=== PATIENT | female | born 1945 | race Hispanic/Latino ===

== ENCOUNTER 2017-05-01 08:57 | Outpatient (CLI) | payer MEDICARE, OTHER ==
--- NOTE | 2017-05-01 15:35 | Mammography Report ---
BILATERAL DIGITAL SCREENING MAMMOGRAM with CAD : 05/01/17 08:57:00 CLINICAL: Routine screening. COMPARISON:04/20/16 FINDINGS: The breasts are heterogeneously dense, which may obscure small masses. No mass, architectural distortion or suspicious calcifications. IMPRESSION: No mammographic evidence of malignancy. BI-RADS CATEGORY: 2 -- Benign RECOMMENDATION: Routine mammographic screening in one year. COMMENT: Patient follow-up letters are generated by our [employer] application.
== END 2017-05-01 08:58 | disposition home or self-care (01) ==
LOC: SPVWC 08:57
PROVIDERS: ATTEND Obstetrics & Gynecology
DX: Z12.31 Encounter for screening mammogram for malignant neoplasm of breast (principal)
CPT/HCPCS: 77067; G0202

== ENCOUNTER 2018-05-21 09:56 | Outpatient (CLI) | payer MEDICARE, OTHER ==
--- NOTE | 2018-05-22 10:11 | Mammography Report ---
BILATERAL DIGITAL SCREENING MAMMOGRAM with CAD: 05/21/18 09:56:00 CLINICAL: Routine screening. COMPARISON:05/01/17 and mammograms going back to 11/13/11 FINDINGS: The breasts are heterogeneously dense, which may obscure small masses. A right upper asymmetry on MLO view requires additional imaging.No architectural distortion or suspicious calcifications.The left breast is negative. Scattered bilateral benign calcifications. IMPRESSION: Right asymmetry requiring further workup. BI-RADS CATEGORY: 0 -- Additional Imaging Evaluation Required RECOMMENDATION: Recall for right mediolateral, exaggerated CC and right MLO spot compression views and right breast ultrasound if needed. ACR BI-RADS MAMMOGRAPHIC CODES: 0 = Needs additional imaging evaluation; 1 = Negative; 2 = Benign; 3 = Probably benign; 4 = Suspicious; 5 = Malignant; 6 = Known biopsy-proven malignancy COMMENT: 1. Dense breast tissue, i.e., adenosis, fibrocystic changes, etc., may obscure an underlying neoplasm. 2. Approximately 10% of cancers are not detected with mammography. 3. A negative mammography report should not delay biopsy if a clinically suspicious mass is present. COMMENT: Patient follow-up letters are generated via our [employer] application.
== END 2018-05-21 09:57 | disposition home or self-care (01) ==
LOC: SPVWC 09:56
PROVIDERS: ATTEND Obstetrics & Gynecology
DX: Z12.31 Encounter for screening mammogram for malignant neoplasm of breast (principal)
CPT/HCPCS: 77067

== ENCOUNTER 2018-06-06 14:05 | Outpatient (CLI) | payer MEDICARE, OTHER ==
--- NOTE | 2018-06-06 15:25 | Ultrasound Report ---
RIGHT DIGITAL DIAGNOSTIC MAMMOGRAM : 06/06/18 14:05:00 CLINICAL: Recalled for asymmetry. COMPARISON:05/21/18 screening FINDINGS: ML, exaggerate CC and spot compression and spot magnification MLO views were performed. An asymmetry persists on the MLO views but is not identified on other views. Ultrasound of the upper right breast was performed and demonstrated normal fibroglandular and fatty structures. No mass, cyst or shadowing. IMPRESSION: A probably benign mammographic asymmetry identified only on MLO views with a negative ultrasound. BI-RADS CATEGORY: 3 - - Probably Benign RECOMMENDATION: Six month followup right mammogram and ultrasound needed. ACR BI-RADS MAMMOGRAPHIC CODES: 0 = Needs additional imaging evaluation; 1 = Negative; 2 = Benign; 3 = Probably benign; 4 = Suspicious; 5 = Malignant; 6 = Known biopsy-proven malignancy COMMENT: 1. Dense breast tissue, i.e., adenosis, fibrocystic changes, etc., may obscure an underlying neoplasm. 2. Approximately 10% of cancers are not detected with mammography. 3. A negative mammography report should not delay biopsy if a clinically suspicious mass is present. COMMENT: Patient follow-up letters are generated via our [employer] application.
== END 2018-06-06 14:06 | disposition home or self-care (01) ==
LOC: SPVWC 14:05
PROVIDERS: ATTEND Obstetrics & Gynecology
DX: N64.89 Other specified disorders of breast (principal)

== ENCOUNTER 2018-11-04 13:53 | Outpatient (CLI) | payer MEDICARE ==
--- NOTE | 2018-11-04 15:06 | Mammography Report ---
RIGHT DIGITAL DIAGNOSTIC MAMMOGRAM with CAD: 11/04/18 13:53:00 CLINICAL: Follow-up asymmetry. COMPARISON:06/06/18 FINDINGS: Routine views plus exaggerated CC and spot compression MLO views were performed. The breast is heterogeneously dense with a stable pattern. The previously described upper asymmetry on MLO view is smaller compared to previous exams. No mass, architectural distortion or suspicious calcifications. IMPRESSION: No mammographic evidence of malignancy. BI-RADS CATEGORY: 2 -- Benign RECOMMENDATION: Return to routine mammographic screening. ACR BI-RADS MAMMOGRAPHIC CODES: 0 = Needs additional imaging evaluation; 1 = Negative; 2 = Benign; 3 = Probably benign; 4 = Suspicious; 5 = Malignant; 6 = Known biopsy-proven malignancy COMMENT: 1. Dense breast tissue, i.e., adenosis, fibrocystic changes, etc., may obscure an underlying neoplasm. 2. Approximately 10% of cancers are not detected with mammography. 3. A negative mammography report should not delay biopsy if a clinically suspicious mass is present. COMMENT: Patient follow-up letters are generated by our [employer] application.
== END 2018-11-04 13:54 | disposition home or self-care (01) ==
LOC: SPVWC 13:53
PROVIDERS: ATTEND Obstetrics & Gynecology
DX: N64.89 Other specified disorders of breast (principal)

== ENCOUNTER 2019-07-29 13:12 | Outpatient (CLI) | payer MEDICARE ==
--- NOTE | 2019-07-29 13:54 | Mammography Report ---
DIGITAL SCREENING MAMMOGRAM WITH CAD, 07/29/2019 INDICATION: Routine screening mammography. TECHNIQUE: Digital bilateral 2D mammography was obtained in the craniocaudal and mediolateral obliq ue projections. This examination was interpreted with the benefit of Computer-Aided Detection analysi s. COMPARISON: 11/04/2018 and 05/21/2018 FINDINGS: Breast Density: The breasts are heterogeneously dense, which may obscure small masses. There is no evidence of dominant mass, suspicious calcifications or architectural distortion in eithe r breast. IMPRESSION: No mammographic evidence of malignancy. Follow up recommendation: Routine yearly BI-RADS Category 2: Benign. A "normal" or negative report should not discourage follow up or biopsy of a clinically significant f inding. A written summary of these findings will be mailed to the patient. The patient will be entered into a mammography reporting system which will generate a reminder letter for the patient's next appointmen t at the appropriate interval. The [employer] recommends yearly mammograms starting at age 40 and continuing as l luis felipe as a woman is in good health. Breast MRI is recommended for women with an approximate 20-25% or greater lifetime risk of breast cancer, including women with a strong family history of breast or ova flip cancer or who have been treated for Hodgkin's disease. Signer Name: Gabriel Duffy MD Signed: 07/29/2019 1:49 PM Workstation Name: [id number]
== END 2019-07-29 13:13 | disposition home or self-care (01) ==
LOC: SPVWC 13:12
PROVIDERS: ATTEND Obstetrics & Gynecology
DX: Z12.31 Encounter for screening mammogram for malignant neoplasm of breast (principal)
CPT/HCPCS: 77067

== ENCOUNTER 2020-07-30 08:41 | Outpatient (CLI) | payer MEDICARE ==
--- NOTE | 2020-07-30 10:09 | Mammography Report ---
DIGITAL SCREENING MAMMOGRAM WITH CAD, 07/30/2020 CLINICAL INFORMATION / INDICATION: Routine screening mammography. SCREENING MAMMO TECHNIQUE: Digital bilateral 2D mammography was obtained in the craniocaudal and mediolateral obliqu e projections. This examination was interpreted with the benefit of Computer-Aided Detection analysis . COMPARISON: 05/21/2018 and 07/29/2019 FINDINGS: Breast Density: The breasts are heterogeneously dense, which may obscure small masses. No dominant mass, suspicious calcifications, or architectural distortion in either breast. There are stable scattered bilateral calcifications. IMPRESSION: No mammographic evidence of malignancy. Follow up recommendation: Routine yearly BI-RADS Category 2: Benign. A "normal" or negative report should not discourage follow up or biopsy of a clinically significant f inding. A written summary of these findings will be mailed to the patient. The patient will be entered into a mammography reporting system which will generate a reminder letter for the patient's next appointmen t at the appropriate interval. The [employer] recommends yearly mammograms starting at age 40 and continuing as l luis felipe as a woman is in good health. Breast MRI is recommended for women with an approximate 20-25% or greater lifetime risk of breast cancer, including women with a strong family history of breast or ova flip cancer or who have been treated for Hodgkin's disease. Signer Name: Andres eRyna MD Signed: 07/30/2020 10:05 AM Workstation Name: [id number]
== END 2020-07-30 08:42 | disposition home or self-care (01) ==
LOC: SPVWC 08:41
PROVIDERS: ATTEND Obstetrics & Gynecology
DX: Z12.31 Encounter for screening mammogram for malignant neoplasm of breast (principal); N64.89 Other specified disorders of breast
CPT/HCPCS: 77067

== ENCOUNTER 2021-08-01 09:29 | Outpatient (CLI) | payer MEDICARE ==
--- NOTE | 2021-08-01 15:17 | Mammography Report ---
DIGITAL SCREENING MAMMOGRAM WITH CAD, 08/01/2021 CLINICAL INFORMATION / INDICATION: Routine screening mammography. SCREENING MAMMO TECHNIQUE: Digital bilateral 2D mammography was obtained in the craniocaudal and mediolateral obliqu e projections. This examination was interpreted with the benefit of Computer-Aided Detection analysis . COMPARISON: 04/20/2016 through 07/30/2020. FINDINGS: Breast Density: The breasts are heterogeneously dense, which may obscure small masses. No dominant mass, suspicious calcifications, or architectural distortion in either breast. There are benign-appearing scattered calcifications bilaterally. IMPRESSION: No mammographic evidence of malignancy. Follow up recommendation: Routine yearly BI-RADS Category 2: Benign. A "normal" or negative report should not discourage follow up or biopsy of a clinically significant f inding. A written summary of these findings will be mailed to the patient. The patient will be entered into a mammography reporting system which will generate a reminder letter for the patient's next appointmen t at the appropriate interval. The [employer] recommends yearly mammograms starting at age 40 and continuing as l luis felipe as a woman is in good health. Breast MRI is recommended for women with an approximate 20-25% or greater lifetime risk of breast cancer, including women with a strong family history of breast or ova flip cancer or who have been treated for Hodgkin's disease. Signer Name: César Hess MD Signed: 08/01/2021 3:13 PM Workstation Name: [id number]
== END 2021-08-01 09:30 | disposition home or self-care (01) ==
LOC: SPVWC 09:29
PROVIDERS: ATTEND Obstetrics & Gynecology
DX: Z12.31 Encounter for screening mammogram for malignant neoplasm of breast (principal)
CPT/HCPCS: 77067